=== PATIENT | male | born 1995 | race American Indian/Alaskan Native ===

== ENCOUNTER → 2018-10-09 | Emergency (ER) | payer OTHER ==
[~2018-10-09] MED LIST: NACL 0.9% 1000 ML 1,000 ML IV ONE; NARCAN 2 MG/2 ML IV ONE; VITAMIN B-1 100 MG, FOLVITE 1 MG, INFUVITE 10 ML in NACL 0.9% 1000 ML 1,000 ML IV ONE; ZOFRAN IV ONE
--- NOTE | 2018-10-09 03:12 | Emergency Department Report ---
ED Altered Mental Status HPI - General Stated Complaint: ETOH Time Seen by Provider: 10/09/18 02:51 Source: EMS - History of Present Illness Initial Comments: 23-year-old male presents to ED with alcohol intoxication. Friends called 911 because patient was passed out. Friends state patient has been drinking all night and doing shots of alcohol. EMS states pupils were pinpoint sound like him was given, report minimal arousal with Narcan and then patient went back to sleeping. Friends denies any alcohol use tristen SON Complaint: intoxication -: This evening Severity: severe Consistency of Symptoms: constant Context: alcohol abuse Treatments Prior to Arrival: other pre-hosp med (narcan) - Related Data Home Medications Medication Instructions Recorded Confirmed Last Taken No Known Home Medications [No 10/09/18 10/09/18 Unknown Reported Home Medications] Allergies Allergy/AdvReac Type Severity Reaction Status Date / Time No Known Allergies Allergy Verified 10/09/18 07:34 ED Review of Systems ROS: Stated complaint: ETOH Other details as noted in HPI Comment: Unobtainable due to pts medical conditions ED Past Medical Hx - Medications Home Medications: Home Medications Medication Instructions Recorded Confirmed Last Taken Type No Known Home Medications [No 10/09/18 10/09/18 Unknown History Reported Home Medications] ED Physical Exam - General General appearance: lethargic - Head Head exam: Present: atraumatic, normocephalic - Eye Eye exam: Present: other (pinpoint pupils bilaterally) - ENT ENT exam: Present: mucous membranes moist - Neck Neck exam: Present: normal inspection - Respiratory Respiratory exam: Present: normal lung sounds bilaterally. Absent: respiratory distress - Cardiovascular Cardiovascular Exam: Present: regular rate, normal rhythm - GI/Abdominal GI/Abdominal exam: Absent: distended - Extremities Exam Extremities exam: Present: normal inspection - Skin Skin exam: Present: warm, dry, intact, normal color ED Course Vital Signs 10/09/18 10/09/18 10/09/18 03:22 03:30 04:22 Temperature 98 F Pulse Rate 96 H 82 Respiratory 17 20 16 Rate Blood Pressure 113/75 108/59 Blood Pressure 113/75 [Left] O2 Sat by Pulse 97 87 Oximetry 10/09/18 10/09/18 10/09/18 04:23 05:00 06:00 Temperature Pulse Rate 91 H 80 85 Respiratory 14 12 12 Rate Blood Pressure 119/77 112/65 113/67 Blood Pressure [Left] O2 Sat by Pulse 95 94 100 Oximetry 10/09/18 10/09/18 08:18 14:31 Temperature Pulse Rate 76 70 Respiratory 16 16 Rate Blood Pressure Blood Pressure 112/73 134/77 [Left] O2 Sat by Pulse 96 99 Oximetry - Reevaluation(s) Reevaluation #1: 10/09/18 03:39 Friend at bedside. States he was present and drinking with pt. States pt had at least 7 shots of dark liquor, possibly more. Friend states after the last shot of alcohol, pt appeared lethargic. States he slid off of the sofa, but was able to pick himself up and get back on the couch on his own. Pt then became gradually more lethargic and unresponsive. So the friend picked up the pt and carried him into the bathroom and put him in a tub of cold water. When that did not help, EMS was called. - Lab Data Result diagrams: 10/09/18 03:19 10/09/18 03:19 Lab Results 10/09/18 10/09/18 10/09/18 Range/Units 03:01 03:19 03:19 WBC 6.3 (4.5-11.0) K/mm3 RBC 4.76 (3.65-5.03) M/mm3 Hgb 15.1 (11.8-15.2) gm/dl Hct 45.1 (35.5-45.6) % MCV 95 H (84-94) fl MCH 32 (28-32) pg MCHC 34 (32-34) % RDW 14.9 (13.2-15.2) % Plt Count 196 (140-440) K/mm3 Lymph % (Auto) 33.4 (13.4-35.0) % Hall % (Auto) 8.8 H (0.0-7.3) % Eos % (Auto) 0.6 (0.0-4.3) % Baso % (Auto) 0.6 (0.0-1.8) % Lymph # 2.1 (1.2-5.4) K/mm3 Hall # 0.6 (0.0-0.8) K/mm3 Eos # 0.0 (0.0-0.4) K/mm3 Baso # 0.0 (0.0-0.1) K/mm3 Seg Neutrophils % 56.6 (40.0-70.0) % Seg Neutrophils # 3.6 (1.8-7.7) K/mm3 Sodium 143 (137-145) mmol/L Potassium 3.7 (3.6-5.0) mmol/L Chloride 104.8 (98-107) mmol/L Carbon Dioxide 24 (22-30) mmol/L Anion Gap 18 mmol/L BUN 5 L (9-20) mg/dL Creatinine 0.8 (0.8-1.5) mg/dL Estimated GFR > 60 ml/min BUN/Creatinine Ratio 6 % Glucose 124 H (75-100) mg/dL Calcium 8.0 L (8.4-10.2) mg/dL Total Bilirubin 0.20 (0.1-1.2) mg/dL AST 23 (5-40) units/L ALT 11 (7-56) units/L Alkaline Phosphatase 71 (35-129) units/L Total Protein 7.1 (6.3-8.2) g/dL Albumin 4.5 (3.9-5) g/dL Albumin/Globulin Ratio 1.7 % Urine Opiates Screen Presumptive negative Urine Methadone Screen Presumptive negative Ur Barbiturates Screen Presumptive negative Ur Phencyclidine Scrn Presumptive negative Ur Amphetamines Screen Presumptive negative U Benzodiazepines Scrn Presumptive negative Urine Cocaine Screen Presumptive negative U Marijuana (THC) Screen Presumptive positive Drugs of Abuse Note Disclamer Plasma/Serum Alcohol (0-0.07) % /03/18 Range/Units 03:19 WBC (4.5-11.0) K/mm3 RBC (3.65-5.03) M/mm3 Hgb (11.8-15.2) gm/dl Hct (35.5-45.6) % MCV (84-94) fl MCH (28-32) pg MCHC (32-34) % RDW (13.2-15.2) % Plt Count (140-440) K/mm3 Lymph % (Auto) (13.4-35.0) % Hall % (Auto) (0.0-7.3) % Eos % (Auto) (0.0-4.3) % Baso % (Auto) (0.0-1.8) % Lymph # (1.2-5.4) K/mm3 Hall # (0.0-0.8) K/mm3 Eos # (0.0-0.4) K/mm3 Baso # (0.0-0.1) K/mm3 Seg Neutrophils % (40.0-70.0) % Seg Neutrophils # (1.8-7.7) K/mm3 Sodium (137-145) mmol/L Potassium (3.6-5.0) mmol/L Chloride (98-107) mmol/L Carbon Dioxide (22-30) mmol/L Anion Gap mmol/L BUN (9-20) mg/dL Creatinine (0.8-1.5) mg/dL Estimated GFR ml/min BUN/Creatinine Ratio % Glucose (75-100) mg/dL Calcium (8.4-10.2) mg/dL Total Bilirubin (0.1-1.2) mg/dL AST (5-40) units/L ALT (7-56) units/L Alkaline Phosphatase (35-129) units/L Total Protein (6.3-8.2) g/dL Albumin (3.9-5) g/dL Albumin/Globulin Ratio % Urine Opiates Screen Urine Methadone Screen Ur Barbiturates Screen Ur Phencyclidine Scrn Ur Amphetamines Screen U Benzodiazepines Scrn Urine Cocaine Screen U Marijuana (THC) Screen Drugs of Abuse Note Plasma/Serum Alcohol 0.46 H (0-0.07) % - Radiology Data Radiology results: report reviewed, image reviewed - Medical Decision Making 23-year-old male presents to ED with alcohol intoxication, EtOH level of 460. Patient is intoxicated and obtunded. Vitals are normal. Narcan was given due to pinpoint pupils, however, there was no change in mental status. Patient responds to painful stimuli but is still not yet awake. UDS positive for marijuana only. CT head is negative for any acute findings. Patient will require further observation here in the ED until sober. - Differential Diagnosis ETOH, drug abuse, intracranial abnormality Critical care attestation.: If time is entered above; I have spent that time in minutes in the direct care of this critically ill patient, excluding procedure time. ED Disposition Clinical Impression: Alcohol intoxication Qualifiers: Complication of substance-induced condition: uncomplicated Qualified Code(s): F10.920 - Alcohol use, unspecified with intoxication, uncomplicated Disposition: DC-01 TO HOME OR SELFCARE Is pt being admited?: No Condition: Stable Instructions: Alcohol Intoxication (ED), Abuse of Alcohol (ED) Referrals: SABIHA BUTTS MD [Primary Care Provider] - 3-5 Days Forms: Work/School Release Form(ED)
[2018-10-09 03:20] LABS: Amphetamine Screen,Urine PRESUMPTIVE NEGATIVE; Benzodiazepines Screen,Urine PRESUMPTIVE NEGATIVE; Cocaine Screen,Urine PRESUMPTIVE NEGATIVE; Methadone Screen,Urine PRESUMPTIVE NEGATIVE; Opiate Screen,Urine PRESUMPTIVE NEGATIVE
[2018-10-09 03:31] LABS: Basophils % (Auto) 0.6 % (0.0-1.8); Eosinophils % (Auto) 0.6 % (0.0-4.3); Hematocrit 45.1 % (35.5-45.6); Hemoglobin 15.1 gm/dl (11.8-15.2); Lymphocytes # (Auto) 2.1 K/mm3 (1.2-5.4); Lymphocytes % (Auto) 33.4 % (13.4-35.0); Mean Corpuscular HGB Conc 34 % (32-34); Mean Corpuscular Volume 95 fl (84-94); Monocytes # (Auto) 0.6 K/mm3 (0.0-0.8); Monocytes % (Auto) 8.8 % (0.0-7.3); Platelet Count 196 K/mm3 (140-440); Red Blood Count 4.76 M/mm3 (3.65-5.03); Red Cell Distribution Width 14.9 % (13.2-15.2)
[2018-10-09 03:32] LABS: Cannabinoid Screen,Urine PRESUMPTIVE POSITIVE
[2018-10-09 03:46] LABS: Alanine Aminotransferase 11 units/L (7-56); Albumin 4.5 g/dL (3.9-5); BUN/Creatinine Ratio 6; Blood Urea Nitrogen 5 mg/dL (9-20); Hemolysis Index 14
--- NOTE | 2018-10-09 05:02 | Cat Scan Report ---
CT HEAD WITHOUT CONTRAST INDICATION: ams. TECHNIQUE: All CT scans at this location are performed using CT dose reduction for ALARA by means of automated e xposure control. COMPARISON: None available. FINDINGS: HEMORRHAGE: None. EXTRA-AXIAL SPACES: Normal in size and morphology for the patient's age. VENTRICULAR SYSTEM: Normal in size and morphology for the patient's age. BRAIN PARENCHYMA: No acute findings. MIDLINE SHIFT OR HERNIATION: None. ORBITS: Normal as visualized. SOFT TISSUES OF HEAD: Normal. CALVARIUM: Normal. VISUALIZED PARANASAL SINUSES AND MASTOID AIR CELLS: Clear. ADDITIONAL FINDINGS: None. IMPRESSION: 1. The exam is somewhat limited due to patient motion artifact. Accounting for this, no acute intracr anial abnormality. Signer Name: Reed Bennett MD Signed: 10/09/2018 4:57 AM Workstation Name: [id number]
--- NOTE | 2018-10-09 14:16 | Emergency Department Report ---
Blank Doc - Documentation Documentation: Plan observe in the emergency department. He currently has no complaints. He is fully ambulatory. He is awake alert oriented 3. Speech is clear. His significant other is at the bedside. He is appropriate for outpatient disposition at this point.
[2018-10-09 14:32] VITALS: BP 134/77
== END | disposition home or self-care (01) ==
LOC: ED 02:44
DX: F10.129 Alcohol abuse with intoxication, unspecified (principal); R41.82 Altered mental status, unspecified
CPT/HCPCS: 36415; 70450; 80053; 80307; 85025; 96365; 96366; 96375; 99284; G0480; J2310; J2405; J3411; J7030; 80320